=== PATIENT | female | born 1965 | race Caucasian/White ===

== ENCOUNTER 2017-02-28 12:09 | Outpatient (CLI) | payer BC, MEDICARE ==
--- NOTE | 2017-02-28 14:28 | RAD ---
CHEST TWO VIEWS: History: Dyspnea. FINDINGS: No comparison. The cardiac silhouette and pulmonary vasculature are unremarkable. Mediastinum is mid line. Lungs are hyperinflated with flattening of each hemidiaphragm. There is no confluent airspace consolidation, pneumothorax, or pleural fluid evident. IMPRESSION: COPD. POS: [facility]
== END 2017-02-28 12:10 | disposition home or self-care (01) ==
LOC: RAD 12:09
PROVIDERS: ATTEND Internal Medicine Pulmonary Disease
DX: R06.00 Dyspnea, unspecified (principal); J44.9 Chronic obstructive pulmonary disease, unspecified
CPT/HCPCS: 71020